=== PATIENT | male | born 1955 | race Hispanic/Latino ===

== ENCOUNTER 2017-04-27 01:30 | Emergency (ER) | payer OTHER, SELFPAY ==
[2017-04-27 02:47] LABS: APPEARANCE,URINE Clear (CLEAR); BILIRUBIN,URINE Negative (NEGATIVE); COLOR,URINE Yellow (YELLOW); GLUCOSE, URINE (UA) Negative (NEGATIVE); KETONES,URINE Negative (NEGATIVE); LEUKOCYTE ESTERASE ,URINE Negative (NEGATIVE); NITRATE,URINE Negative (NEGATIVE); OCCULT BLOOD,URINE Negative (NEGATIVE); PH,URINE 6.5 (5.0-8.0); PROTEIN,URINE Negative (NEGATIVE)
[2017-04-27] MEDS ORDERED: ONDANSETRON HCL 4 MG/2 ML VIAL ONE (02:54)
[2017-04-27] MEDS ORDERED: KETOROLAC TROMETHAMINE 30MG/ML ONE (02:54)
[2017-04-27] MEDS ORDERED: SODIUM CHLORIDE 0.9% 1000ML 1,000 ML IV ONE (02:54)
[2017-04-27 03:00] LABS: BASOPHILS % (AUTO) 0.2 % (0.0-5.0); EOSINOPHILS % (AUTO) 0.6 % (0.0-8.0); HEMATOCRIT 42.8 % (42-54); LYMPHOCYTES % (AUTO) 11.6 % (21.0-51.0); MEAN CORPUSCULAR HEMOGLOBIN 31.1 pg (27.0-33.0); MEAN CORPUSCULAR HGB CONC 34.5 g/dL (32.0-36.0); MEAN CORPUSCULAR VOLUME 90.1 fL (79-99); MONOCYTES % (AUTO) 6.4 % (3.0-13.0); NEUTROPHILS % (AUTO) 81.2 % (40.0-77.0); PLATELET COUNT (AUTO) 170 K/uL (130-400); RED BLOOD CELL COUNT(AUTO) 4.75 MIL/uL (4.50-6.20); RED CELL DISTRIBUTION WIDTH 12.7 % (11.0-15.5); WHITE BLOOD COUNT (AUTO) 12.2 K/uL (4.8-10.8)
[2017-04-27 03:14] LABS: INR 1.05 (0.85-1.15); PARTIAL THROMBOPLASTIN TIME 27.3 SEC (26.3-35.5)
[2017-04-27 03:39] LABS: CREATININE 0.8 mg/dL (0.5-1.5); POTASSIUM 3.6 mmol/L (3.5-5.1)
[2017-04-27 03:44] LABS: ALBUMIN 3.8 g/dL (3.5-5.0); BILIRUBIN,DIRECT 0.1 mg/dL (0.0-0.3); BILIRUBIN,TOTAL 0.4 mg/dL (0.2-1.0); TOTAL PROTEIN, SERUM 7.2 g/dL (6.0-8.3)
== END 2017-04-27 04:50 | disposition home or self-care (01) ==
LOC: EDH 01:30
DX: K80.50 Calculus of bile duct without cholangitis or cholecystitis without obstruction (principal); Z87.442 Personal history of urinary calculi
CPT/HCPCS: 36415; 76705; 80048; 80076; 81003; 82550; 83690; 84484; 85025; 85610; 85730; 93005; 96361; 96374; 96375; 99285; J1885; J2405; J7030

== ENCOUNTER 2019-07-29 21:04 | Emergency (ER) | payer OTHER, SELFPAY ==
[2019-07-29] MEDS ORDERED: TAMSULOSIN HCL 0.4 MG CAP.ER.24H ONE (21:51)
[2019-07-29] MEDS ORDERED: KETOROLAC TROMETHAMINE 30MG/ML ONE (21:51)
[2019-07-29] MEDS ORDERED: ONDANSETRON HCL 4 MG/2 ML VIAL ONE (21:51)
== END 2019-07-29 22:42 | disposition home or self-care (01) ==
LOC: EDH 21:04
DX: N20.0 Calculus of kidney (principal); K80.20 Calculus of gallbladder without cholecystitis without obstruction; I10 Essential (primary) hypertension
CPT/HCPCS: 36415; 74176; 76705; 80053; 81003; 82150; 82550; 83690; 84484; 85025; 85610; 85730; 93005; 96374; 96375; 99285; J1885; J2405

== ENCOUNTER 2020-07-08 04:03 | Emergency (ER) | payer OTHER, SELFPAY ==
[2020-07-08] MEDS ORDERED: METOCLOPRAMIDE 10 MG/2 ML VIAL ONE (04:24)
[2020-07-08] MEDS ORDERED: ONDANSETRON HCL 4 MG/2 ML VIAL ONE (04:24)
[2020-07-08] MEDS ORDERED: SODIUM CHLORIDE 0.9% 1000ML 1,000 ML IV ONE (04:24)
[2020-07-08] MEDS ORDERED: KETOROLAC TROMETHAMINE 30MG/ML ONE (04:25)
[2020-07-08 04:32] LABS: BASOPHILS % (AUTO) 0.7 % (0.0-5.0); EOSINOPHILS % (AUTO) 1.9 % (0.0-8.0); HEMATOCRIT 44.4 % (42-54); LYMPHOCYTES % (AUTO) 39.8 % (21.0-51.0); MEAN CORPUSCULAR HEMOGLOBIN 32.4 pg (27.0-33.0); MEAN CORPUSCULAR HGB CONC 35.6 g/dL (32.0-36.0); MEAN CORPUSCULAR VOLUME 91.2 fL (79-99); MONOCYTES % (AUTO) 11.6 % (3.0-13.0); NEUTROPHILS % (AUTO) 44.4 % (40.0-77.0); PLATELET COUNT (AUTO) 170 K/uL (130-400); RED BLOOD CELL COUNT(AUTO) 4.87 MIL/uL (4.50-6.20); RED CELL DISTRIBUTION WIDTH 11.9 % (11.0-15.5); WHITE BLOOD COUNT (AUTO) 8.1 K/uL (4.8-10.8)
[2020-07-08 04:33] LABS: BILIRUBIN,URINE Negative (NEGATIVE); COLOR,URINE Yellow (YELLOW); GLUCOSE, URINE (UA) Negative (NEGATIVE); KETONES,URINE Negative (NEGATIVE); LEUKOCYTE ESTERASE ,URINE Trace (NEGATIVE); NITRATE,URINE Negative (NEGATIVE); OCCULT BLOOD,URINE Negative (NEGATIVE); PROTEIN,URINE Negative (NEGATIVE)
[2020-07-08 04:37] LABS: APPEARANCE,URINE N (CLEAR)
[2020-07-08 04:42] LABS: CREATININE 1.1 mg/dL (0.5-1.5); POTASSIUM 3.7 mmol/L (3.5-5.1)
[2020-07-08 04:45] LABS: ALBUMIN 4.1 g/dL (3.5-5.0); BILIRUBIN,TOTAL 0.4 mg/dL (0.2-1.0); INR 1.08 (0.85-1.15); PROTHROMBIN TIME 11.7 SEC (9.6-11.6); TOTAL PROTEIN, SERUM 7.7 g/dL (6.0-8.3)
[2020-07-08 04:47] LABS: PARTIAL THROMBOPLASTIN TIME 27.5 SEC (26.3-35.5)
[2020-07-08] MEDS ORDERED: TAMSULOSIN HCL 0.4 MG CAP.ER.24H ONE (05:46)
== END 2020-07-08 06:11 | disposition home or self-care (01) ==
LOC: EDH 04:03
DX: N23 Unspecified renal colic (principal); N20.1 Calculus of ureter; E86.0 Dehydration; I10 Essential (primary) hypertension
CPT/HCPCS: 36415; 74176; 80053; 81003; 83690; 85025; 85610; 85730; 93005; 96361; 96374; 96375; 99285; J1885; J2405; J2765; J7030

== ENCOUNTER 2020-11-25 01:23 | Observation (INO) | payer SELFPAY ==
[2020-11-25 01:50] VITALS: BP 145/86
[2020-11-25] MEDS ORDERED: HYDROMORPHONE 1 MG INJ IVP ONE (02:00)
[2020-11-25] MEDS ORDERED: ONDANSETRON 4MG INJ IVP ONE (02:00)
[2020-11-25] MEDS ORDERED: 0.9%NACL 1000ML 1,000 ML IV ONE (02:00)
[2020-11-25 02:03] LABS: APPEARANCE,URINE Clear (CLEAR); BILIRUBIN,URINE Negative (NEGATIVE); COLOR,URINE Yellow (YELLOW); GLUCOSE, URINE (UA) Negative (NEGATIVE); KETONES,URINE Trace mg/dL (NEGATIVE); LEUKOCYTE ESTERASE ,URINE Negative (NEGATIVE); NITRATE,URINE Negative (NEGATIVE); OCCULT BLOOD,URINE Negative (NEGATIVE); PH,URINE 5.5 (5.0-8.0); PROTEIN,URINE Trace mg/dL (NEGATIVE)
[2020-11-25 02:04] LABS: BASOPHILS % (AUTO) 0.4 % (0.0-5.0); EOSINOPHILS % (AUTO) 1.7 % (0.0-8.0); LYMPHOCYTES % (AUTO) 31.1 % (21.0-51.0); MEAN CORPUSCULAR HEMOGLOBIN 32.5 pg (27.0-33.0); MEAN CORPUSCULAR HGB CONC 34.8 g/dL (32.0-36.0); MEAN CORPUSCULAR VOLUME 93.3 fL (79-99); MONOCYTES % (AUTO) 9.5 % (3.0-13.0); NEUTROPHILS % (AUTO) 56.6 % (40.0-77.0); PLATELET COUNT (AUTO) 159 K/uL (130-400); RED BLOOD CELL COUNT(AUTO) 4.93 MIL/uL (4.50-6.20); RED CELL DISTRIBUTION WIDTH 12.3 % (11.0-15.5); WHITE BLOOD COUNT (AUTO) 7.1 K/uL (4.8-10.8)
[2020-11-25 02:21] LABS: ALBUMIN 4.1 g/dL (3.5-5.0); BILIRUBIN,TOTAL 0.5 mg/dL (0.2-1.0); CREATININE 1.2 mg/dL (0.5-1.5); POTASSIUM 3.9 mmol/L (3.5-5.1); TOTAL PROTEIN, SERUM 7.7 g/dL (6.0-8.3)
[2020-11-25] MEDS ORDERED: KETOROLAC 30MG VIAL (30MG/ML) IV ONE (04:00)
[2020-11-25] MEDS ORDERED: MORPHINE 2 MG SYG IV PRN (04:00)
[2020-11-25] MEDS ORDERED: MORPHINE 4 MG SYG IV PRN (04:00)
[2020-11-25] MEDS ORDERED: KETOROLAC 15MG/ML VIAL (15MG/ML) IV PRN (04:00)
[2020-11-25] MEDS ORDERED: ACETAMINOPHEN 325 MG TAB PO PRN ×2 (04:00)
[2020-11-25] MEDS ORDERED: ONDANSETRON 4MG INJ IV PRN (04:00)
[2020-11-25] MEDS ORDERED: HYDRALAZINE 20MG/ML VIAL IV PRN (04:00)
[2020-11-25 04:22] VITALS: BP 145/86
[2020-11-25] MEDS: LACTATED RINGERS 1000ML 1,000 ML IV SCH ×2 (04:30→09:08)
[2020-11-25 06:18] VITALS: BP 161/77
[2020-11-25 07:21] VITALS: BP 120/82
[2020-11-25] MEDS ORDERED: FAMOTIDINE 20MG TAB PO SCH (09:00)
[2020-11-25] MEDS ORDERED: KETO10 PO (09:56)
[2020-11-25] MEDS ORDERED: TAMS-1 PO (09:56)
== END 2020-11-25 10:59 | disposition home or self-care (01) ==
LOC: EDH 01:23 → EDHIP 01:24
PROVIDERS: ADMIT Internal Medicine; ATTEND Internal Medicine
DX: N20.0 Calculus of kidney (principal); Z20.822 Contact with and (suspected) exposure to COVID-19; I10 Essential (primary) hypertension; Z87.442 Personal history of urinary calculi; Z79.899 Other long term (current) drug therapy; Z98.890 Other specified postprocedural states
CPT/HCPCS: 36415; 74176; 76770; 80053; 81003; 83690; 85025; 87635; 96361; 96374; 96375; 96376; 99284; G0378 ×7; J1170; J1885 ×2; J2405